=== PATIENT | male | born 1985 | race American Indian/Alaskan Native ===

== ENCOUNTER 2016-08-24 20:26 | Emergency (ER) | payer SELFPAY ==
[2016-08-24] MEDS ORDERED: Sodium Chloride 0.9% 500 ML IV ONE ×2 (20:47→21:04)
[2016-08-24] MEDS ORDERED: Sodium Chloride 0.9% 1,000 ML IV ONE (20:47)
--- NOTE | 2016-08-24 20:50 | C.PDOC ---
History Of Present Illness 31 y/o male presents to the ED with complains of left flank pain x2 days with associated nausea and vomiting. Pt with history of left kidney stone. Denies fever, chills, hematuria or any other complaints. Chief Complaint (Nursing): Male Genitourinary History Per: Patient History/Exam Limitations: no limitations Onset/Duration Of Symptoms: Days Current Symptoms Are (Timing): Still Present Severity: Moderate Quality Of Discomfort: "Pain" Associated Symptoms: Nausea, Vomiting. denies: Fever, Chills Alleviating Factors: None Recent travel outside of the [place]: No Past Medical History Reviewed: Historical Data, Nursing Documentation, Vital Signs Vital Signs: Last Vital Signs Temp 98.3 F 08/24/16 21:55 Pulse 85 08/24/16 21:55 Resp 20 08/24/16 21:55 BP 144/86 08/24/16 21:55 Pulse Ox 99 08/24/16 23:27 - Medical History PMH: Back Problems (Herniated discs), Kidney Stones Family History: States: Unknown Family Hx - Social History Hx Tobacco Use: Yes Hx Alcohol Use: No Hx Substance Use: No - Immunization History Hx Tetanus Toxoid Vaccination: No Hx Influenza Vaccination: Yes Hx Pneumococcal Vaccination: No Review Of Systems Except As Marked, All Systems Reviewed And Found Negative. Constitutional: Negative for: Fever, Chills Gastrointestinal: Positive for: Nausea, Vomiting Musculoskeletal: Positive for: Other (left flank pain) Physical Exam - Physical Exam Appears: Non-toxic, In Acute Distress (moderate distress due to pain) Skin: Warm, Dry, No Rash Head: Atraumatic, Normacephalic Neck: Normal, Normal ROM Chest: Symmetrical Cardiovascular: Rhythm Regular, No Murmur Respiratory: Normal Breath Sounds, No Rales, No Rhonchi, No Wheezing Gastrointestinal/Abdominal: Normal Exam, Soft, No Tenderness Back: CVA Tenderness (mild left) Extremity: Bilateral: Atraumatic Neurological/Psych: Oriented x3, Normal Speech ED Course And Treatment - Laboratory Results Result Diagrams: 08/24/16 21:02 08/24/16 21:02 O2 Sat by Pulse Oximetry: 99 (room air) Pulse Ox Interpretation: Normal Progress Note: Plan: labs, UA, IV fluids, flomax, morphine, toradol, zofran. Patient refused CT because he states he has had 4 CTs done this year, will be discharged home and instructed to follow up with urologist. Disposition Counseled Patient/Family Regarding: Diagnosis - Disposition Referrals: [facility] [Outside] Jose Leon Jr., MD [Staff Provider] - Disposition: HOME/ ROUTINE Disposition Time: 23:24 Condition: STABLE Prescriptions: oxyCODONE/Acetaminophen [Percocet 5/325 mg Tab] 1 ea PO Q6 #10 tab Tamsulosin HCl [Flomax] 0.4 mg PO DAILY #10 cap.er.24h Instructions: Renal Colic (GEN) - POA Present On Arrival: None - Clinical Impression Clinical Impression: Renal colic - Scribe Statement The provider has reviewed the documentation as recorded by the Nicolás Sharma Provider Attestation: All medical record entries made by the Nicolás were at my direction and personally dictated by me. I have reviewed the chart and agree that the record accurately reflects my personal performance of the history, physical exam, medical decision making, and the department course for this patient. I have also personally directed, reviewed, and agree with the discharge instructions and disposition.
[2016-08-24] MEDS ORDERED: Sodium Chloride 0.9% 1,000 ML ONE (21:04)
[2016-08-24 21:06] LABS: BASO # 0.1 K/uL (0.0-0.2); BASO % 0.8 % (0.0-2.0); EOS # 0.3 K/uL (0.0-0.7); EOS % 3.3 % (0.0-4.0); HEMATOCRIT 42.5 % (35.0-51.0); LYMPH # 2.7 K/uL (1.0-4.3); LYMPH % 33.3 % (20.0-40.0); MEAN CELL VOLUME 84.7 fL (80.0-94.0); MEAN CORPUSCULAR HEMOGLOBIN 27.8 pg (27.0-31.0); MEAN CORPUSCULAR HGB CONC 32.9 g/dL (33.0-37.0); MEAN PLATELET VOLUME 8.7 fL (7.2-11.7); MONO # 0.3 K/uL (0.0-0.8); MONO % 3.3 % (0.0-10.0)
[2016-08-24 21:09] LABS: RBC URINE 2558 /hpf (0-3); URINE BACTERIA OCC (<OCC); URINE BILIRUBIN NEGATIVE (NEGATIVE); URINE BLOOD 3+ (NEGATIVE); URINE COLOR Yellow (YELLOW); URINE GLUCOSE (UA) NORMAL (Normal); URINE KETONE NEGATIVE (NEGATIVE); URINE LEUKOCYTE ESTERASE NEG Leu/uL (Negative); URINE PROTEIN 1+ mg/dL (NEGATIVE); URINE UROBILINOGEN NORMAL mg/dL (0.2-1.0); WBC URINE 4 /hpf (0-5)
[2016-08-24 21:18] LABS: CHLORIDE 101 mmol/L (98-107); POTASSIUM 3.8 mmol/L (3.6-5.2); SODIUM 139 mmol/L (132-148)
[2016-08-24 21:20] LABS: ALB/GLOB RATIO 1.4 (1.0-2.1); ALKALINE PHOSPHATASE 66 U/L (38-126); AST/SGOT 21 U/L (17-59); BILIRUBIN,TOTAL 0.6 mg/dL (0.2-1.3); BLOOD UREA NITROGEN 12 mg/dL (9-20); CARBON DIOXIDE 26 mmol/L (22-30); GFR AFRICAN-AMERICAN > 60; TOTAL PROTEIN 7.5 g/dL (6.3-8.3)
[2016-08-24 21:21] LABS: ALT/SGPT 23 U/L (21-72); CALCIUM 9.1 mg/dl (8.6-10.4); GLUCOSE,RANDOM 108 mg/dL (75-110)
[2016-08-24 23:22] VITALS: O2SAT 99
[2016-08-24 23:44] VITALS: BP 141/78; PULSE 79; RESP 18; TEMP 98
== END 2016-08-24 23:46 | disposition home or self-care (01) ==
LOC: C.ER 20:26
DX: N23 Unspecified renal colic (principal)
CPT/HCPCS: 80053; 81001; 83690; 85025; 87086; 96374; 96375; 99284; J2270; J2405; J7040

== ENCOUNTER 2016-09-13 15:42 | Emergency (ER) | payer SELFPAY ==
[2016-09-13] MEDS ORDERED: Sodium Chloride 0.9% 1,000 ML IV ONE (16:19)
[2016-09-13] MEDS ORDERED: Morphine 4 MG/ML VIAL IV STA (16:31)
[2016-09-13] MEDS ORDERED: Sodium Chloride 0.9% 1,000 ML ONE (16:47)
--- NOTE | 2016-09-13 16:57 | C.PDOC ---
History Of Present Illness 31 year old patient, with a past medical history of back problems and kidney stones, presents to the ED complaining of left flank pain. Patient also complains of hematuria. He notes he has been able to tolerate po well. He has a history of spontaneously passing kidney stones. Patient denies dysuria, nausea, vomiting or fever. Time Seen by Provider: 09/13/16 16:15 Chief Complaint (Nursing): Male Genitourinary History Per: Patient History/Exam Limitations: no limitations Onset/Duration Of Symptoms: Worse Since (today) Current Symptoms Are (Timing): Still Present Severity: Mild Pain Scale Rating Of: 3 Quality Of Discomfort: "Pain" Associated Symptoms: Urinary Symptoms Alleviating Factors: None Recent travel outside of the [place]: No Past Medical History Reviewed: Historical Data, Nursing Documentation, Vital Signs Vital Signs: Last Vital Signs Temp 96.5 F L 09/13/16 18:20 Pulse 89 09/13/16 18:20 Resp 20 09/13/16 18:20 BP 141/91 H 09/13/16 18:20 Pulse Ox 97 09/13/16 18:32 - Medical History PMH: Back Problems (Herniated discs), Kidney Stones Family History: States: Unknown Family Hx - Social History Hx Tobacco Use: Yes Hx Alcohol Use: No Hx Substance Use: No - Immunization History Hx Tetanus Toxoid Vaccination: No Hx Influenza Vaccination: Yes Hx Pneumococcal Vaccination: No Review Of Systems Except As Marked, All Systems Reviewed And Found Negative. Constitutional: Negative for: Fever Gastrointestinal: Negative for: Nausea, Vomiting Genitourinary: Positive for: Hematuria. Negative for: Dysuria Musculoskeletal: Positive for: Other (left flank pain) Physical Exam - Physical Exam Appears: Non-toxic, No Acute Distress Skin: Warm, Dry Head: Atraumatic, Normacephalic Neck: Normal ROM, Supple Chest: Symmetrical Cardiovascular: Rhythm Regular Respiratory: Normal Breath Sounds, No Rales, No Rhonchi, No Wheezing Gastrointestinal/Abdominal: Soft, No Tenderness, No Guarding, No Rebound Back: CVA Tenderness (left) Extremity: Normal ROM Extremity: Bilateral: Atraumatic Neurological/Psych: Oriented x3, Normal Speech, Normal Cognition Gait: Steady ED Course And Treatment - Laboratory Results Result Diagrams: 09/13/16 17:42 09/13/16 17:42 O2 Sat by Pulse Oximetry: 97 (room air) Pulse Ox Interpretation: Normal Progress Note: Plan: Abdomen/Pelvis CT, Labs, IV fluids, Toradol, Morphine. Patient refused CT. He states he is feeling better after he was given the medications. Patient is discharged and instructed to follow up with the clinic. Disposition - Disposition Referrals: [facility] [Outside] [facility] [Outside] Disposition: HOME/ ROUTINE Disposition Time: 18:00 Condition: IMPROVED Additional Instructions: Thank you for letting us take care of you today. Your provider was Dr. Gutierrez. You were treated for kidney stones. The emergency medical care you received today was directed at your acute symptoms. If you were prescribed any medication, please fill it and take as directed. It may take several days for your symptoms to resolve. Return to the Emergency Department if your symptoms worsen, do not improve, or if you have any other problems. Please contact your doctor or call one of the physicians/clinics you have been referred to that are listed on the Patient Visit Information form that is included in your discharge packet. Bring any paperwork you were given at discharge with you along with any medications you are taking to your follow up visit. Our treatment cannot replace ongoing medical care by a primary care provider (PCP) outside of the emergency department. Thank you for allowing the [facility] team to be part of your care today. Follow up in the clinic in 2-3 days for re-evaluation. Prescriptions: oxyCODONE [oxyCODONE Immediate Release Tab] 5 mg PO Q6 PRN #5 tab PRN Reason: Pain, Severe (8-10) Instructions: Kidney Stones (ED), How to Strain Your Urine (ED) - Clinical Impression Clinical Impression: Nephrolithiasis - Scribe Statement The provider has reviewed the documentation as recorded by the Scribe Miranda Early Provider Attestation: All medical record entries made by the Scribe were at my direction and personally dictated by me. I have reviewed the chart and agree that the record accurately reflects my personal performance of the history, physical exam, medical decision making, and the department course for this patient. I have also personally directed, reviewed, and agree with the discharge instructions and disposition.
[2016-09-13 17:03] LABS: RBC URINE 1045 /hpf (0-3); URINE BACTERIA OCC (<OCC); URINE BILIRUBIN NEGATIVE (NEGATIVE); URINE BLOOD 3+ (NEGATIVE); URINE COLOR Yellow (YELLOW); URINE GLUCOSE (UA) NORMAL (Normal); URINE KETONE NEGATIVE (NEGATIVE); URINE LEUKOCYTE ESTERASE TRACE Leu/uL (Negative); URINE PROTEIN 1+ mg/dL (NEGATIVE); URINE UROBILINOGEN NORMAL mg/dL (0.2-1.0); WBC URINE 4 /hpf (0-5)
[2016-09-13 17:48] LABS: BASO # 0.1 K/uL (0.0-0.2); EOS # 0.1 K/uL (0.0-0.7); EOS % 1.8 % (0.0-4.0); HEMATOCRIT 44.5 % (35.0-51.0); LYMPH # 1.9 K/uL (1.0-4.3); LYMPH % 32.5 % (20.0-40.0); MEAN CELL VOLUME 85.4 fL (80.0-94.0); MEAN CORPUSCULAR HEMOGLOBIN 27.9 pg (27.0-31.0); MEAN CORPUSCULAR HGB CONC 32.6 g/dL (33.0-37.0); MEAN PLATELET VOLUME 8.9 fL (7.2-11.7); MONO # 0.2 K/uL (0.0-0.8); MONO % 3.3 % (0.0-10.0); NRBC % 0.1 % (0.0-2.0); RED CELL DISTRIBUTION WIDTH 13.1 % (11.5-14.5); WHITE BLOOD COUNT 5.9 K/uL (4.8-10.8)
[2016-09-13 17:54] LABS: CHLORIDE 106 mmol/L (98-107)
[2016-09-13 17:55] LABS: POTASSIUM 3.9 mmol/L (3.6-5.2); SODIUM 140 mmol/L (132-148)
[2016-09-13 17:57] LABS: ALB/GLOB RATIO 1.4 (1.0-2.1); ALKALINE PHOSPHATASE 71 U/L (38-126); AST/SGOT 24 U/L (17-59); BILIRUBIN,TOTAL 0.8 mg/dL (0.2-1.3); BLOOD UREA NITROGEN 8 mg/dL (9-20); CARBON DIOXIDE 23 mmol/L (22-30); GFR AFRICAN-AMERICAN > 60; TOTAL PROTEIN 7.7 g/dL (6.3-8.3)
[2016-09-13 17:58] LABS: ALT/SGPT 28 U/L (21-72); CALCIUM 9.5 mg/dl (8.6-10.4); GLUCOSE,RANDOM 98 mg/dL (75-110)
[2016-09-13 18:22] VITALS: BP 141/91; PULSE 89; RESP 20; TEMP 96.5
[2016-09-13 18:32] VITALS: O2SAT 97
== END 2016-09-13 18:20 | disposition home or self-care (01) ==
LOC: C.ER 15:42
DX: N20.0 Calculus of kidney (principal)
CPT/HCPCS: 80053; 81001; 83690; 85025; 87086; 87206; 96374; 99283; J2270; J7040

== ENCOUNTER 2016-12-12 03:14 | Emergency (ER) | payer SELFPAY ==
--- NOTE | 2016-12-12 03:38 | C.PDOC ---
History Of Present Illness 31 y/o male presents to the ED for evaluation of left sided lower back flank pain which began around 2 days ago. Patient states he has had kidney stones six times in the past, and notes his current symptoms feel exactly the same as when he had the prior kidney stones. Patient has been taking Tylenol at home for the pain. He also reports nausea and vomiting. Patient denies fever and abdominal pain. Time Seen by Provider: 12/12/16 03:27 Chief Complaint (Nursing): Abdominal Pain History Per: Patient History/Exam Limitations: no limitations Onset/Duration Of Symptoms: Days (2) Current Symptoms Are (Timing): Still Present Radiation Of Pain To:: Back Quality Of Discomfort: "Pain" Associated Symptoms: Nausea, Vomiting. denies: Fever Additional History Per: Patient Past Medical History Reviewed: Historical Data, Nursing Documentation, Vital Signs Vital Signs: Last Vital Signs Temp 99 F 12/12/16 03:37 Pulse 98 H 12/12/16 03:37 Resp 20 12/12/16 03:37 BP 149/83 12/12/16 03:37 Pulse Ox 98 12/12/16 03:53 - Medical History PMH: Back Problems (Herniated discs), Kidney Stones Surgical History: No Surg Hx Family History: States: Unknown Family Hx - Social History Hx Tobacco Use: Yes Hx Alcohol Use: No Hx Substance Use: No - Immunization History Hx Tetanus Toxoid Vaccination: No Hx Influenza Vaccination: Yes Hx Pneumococcal Vaccination: No Review Of Systems Constitutional: Negative for: Fever, Chills Cardiovascular: Negative for: Chest Pain, Palpitations Respiratory: Negative for: Cough, Shortness of Breath Gastrointestinal: Positive for: Nausea, Vomiting. Negative for: Abdominal Pain Musculoskeletal: Positive for: Back Pain Neurological: Negative for: Weakness, Numbness Physical Exam - Physical Exam Appears: Non-toxic, No Acute Distress Skin: Normal Color, Warm, Dry Head: Atraumatic, Normacephalic Eye(s): bilateral: Normal Inspection Oral Mucosa: Moist Neck: Supple Chest: Symmetrical, No Deformity, No Tenderness Cardiovascular: Rhythm Regular, No Murmur Respiratory: Normal Breath Sounds, No Rales, No Rhonchi, No Wheezing Gastrointestinal/Abdominal: Soft, No Tenderness, No Guarding, No Rebound Back: CVA Tenderness (left-sided ) Extremity: Normal ROM, Capillary Refill (less than 2 seconds ) Neurological/Psych: Oriented x3, Normal Speech, Normal Cognition Gait: Steady ED Course And Treatment O2 Sat by Pulse Oximetry: 98 (on RA) Pulse Ox Interpretation: Normal Progress Note: labs ordered and reviewed. Patient received Morphine IV, Zofran IV, and IV Fluids. Medical Decision Making Medical Decision Makinam the pt is resting quietly in no distress. his pain is improved and he is comfortable w dc at this time. follow up and return precautions advised. Disposition - Disposition Disposition: HOME/ ROUTINE Disposition Time: 06:19 Condition: IMPROVED Forms: [employer] (Thai) - Clinical Impression Clinical Impression: Renal colic - Scribe Statement The provider has reviewed the documentation as recorded by the Scribe (Leatha Early) Provider Attestation: All medical record entries made by the Scribe were at my direction and personally dictated by me. I have reviewed the chart and agree that the record accurately reflects my personal performance of the history, physical exam, medical decision making, and the department course for this patient. I have also personally directed, reviewed, and agree with the discharge instructions and disposition.
[2016-12-12 03:41] VITALS: RESP 20
[2016-12-12] MEDS ORDERED: Sodium Chloride 0.9% 1,000 ML IV ONE (03:42)
[2016-12-12 03:56] LABS: RBC URINE 3101 /hpf (0-3); URINE BACTERIA RARE (<OCC); URINE BILIRUBIN NEGATIVE (NEGATIVE); URINE BLOOD 3+ (NEGATIVE); URINE COLOR Red (YELLOW); URINE GLUCOSE (UA) NORMAL (Normal); URINE KETONE NEGATIVE (NEGATIVE); URINE LEUKOCYTE ESTERASE TRACE Leu/uL (Negative); URINE PROTEIN 2+ mg/dL (NEGATIVE); URINE UROBILINOGEN NORMAL mg/dL (0.2-1.0); WBC URINE 23 /hpf (0-5)
[2016-12-12] MEDS ORDERED: Sodium Chloride 0.9% 1,000 ML ONE (03:58)
[2016-12-12] MEDS ORDERED: Morphine 4 MG/ML VIAL ONE (03:59)
[2016-12-12] MEDS ORDERED: HYDROmorphone 1 mg/ml ISec IVP STA (05:17)
[2016-12-12 06:29] VITALS: BP 141/88; PULSE 78; TEMP 98.2; O2SAT 99
== END 2016-12-12 06:35 | disposition home or self-care (01) ==
LOC: C.ER 03:14
DX: N23 Unspecified renal colic (principal)
CPT/HCPCS: 81001; 87086; 96361; 96374; 96375; 99284; J1170; J2270; J2405; J7040